=== PATIENT | male | born 1930 | race Caucasian/White ===

== ENCOUNTER 2020-02-19 18:44 | Inpatient (IN) | payer MEDICARE, OTHER ==
[~2020-02-19 18:44] MED LIST: Iopamidol-370 76% 500 ML 1 ML ONE
[2020-02-19] MEDS ORDERED: niCARdipine 20MG In NaCl 0 MG/0 ML BAG ONE (18:52)
[2020-02-19] MEDS ORDERED: niCARdipine 20MG In NaCl 20 MG/200 ML BAG ONE ×2 (19:10→21:01)
[2020-02-19 19:15] LABS: #Basophils 0.1 thou/uL (0.0-0.2); #Eosinphils 0.2 thou/uL (0.0-0.7); #Lymphocytes 2.2 thou/uL (1.20-3.40); #Monocytes 0.6 thou/uL (0.11-0.59); #Neutrophils 2.5 thou/uL (1.40-6.50); %Basophils 0.9 % (0.0-1.0); %Eosinophils 3.4 % (0.0-10.0); %Lymphocytes 40.2 % (21.0-51.0); %Monocytes 10.4 % (0.0-10.0); %Neutrophils 45.2 % (42.0-75.0); Hemoglobin 11.8 g/dL (14.0-18.0); Mean Corpuscular HGB CONC 32.1 g/dL (32.0-36.0); Mean Corpuscular Hemoglobin 30.5 pg (27.0-31.0); Mean Corpuscular Volume 94.9 fL (78.0-98.0); Mean Platelet Volume 9.4 fL (7.4-10.4); Platelet Count 166 thou/uL (130-400); RBC Distribution Width 14.1 % (11.5-14.5); Red Blood Cell (RBC) Count 3.87 mill/uL (4.70-6.10); White Blood Cell (WBC) Count 5.6 thou/uL (4.8-10.8)
--- NOTE | 2020-02-19 19:20 | CT ---
CT HEAD WITHOUT CONTRAST: 02/19/20 INDICATIONS: Stroke protocol. Aphasia. No comparison. FINDINGS: There is mild cortical atrophy. Ventricles have normal size and position. There is no evidence of int racranial mass or hemorrhage. There is no evidence of acute cortical infarct. Paranasal sinuses and m astoids are clear. IMPRESSION: No evidence of acute infarct. Findings relayed to Dr. Garcia at 6:57 p.m. POS: RUPAL
[2020-02-19 19:22] LABS: Prothrombin Time 13.9 sec (12.0-14.7)
[2020-02-19] MEDS ORDERED: Lorazepam 2 MG/ML VIAL ONE (19:33)
[2020-02-19 19:36] LABS: ALT (SGPT) 23 U/L (8-55); AST (SGOT) 25 U/L (5-34); Alkaline Phosphatase 140 U/L (40-110); Anion Gap 15 mmol/L (10-20); BUN (Urea Nitrogen) 16 mg/dL (8.4-25.7); Bilirubin, Total 0.7 mg/dL (0.2-1.2); CK (CPK) 89 U/L (30-200); Calc. Creatinine Clearance 0 mL/min (70-130); Calcium 9.3 mg/dL (7.8-10.44); Carbon Dioxide 21 mmol/L (23-31); Chloride 106 mmol/L (98-107); Estimated GFR-MDRD 64; Globulin 2.9 g/dL (2.4-3.5); Glucose 147 mg/dL (83-110); Potassium 4.9 mmol/L (3.5-5.1); Protein, Total 6.9 g/dL (5.8-8.1); Sodium 137 mmol/L (136-145)
--- NOTE | 2020-02-19 20:10 | CT ---
CTA HEAD WITH CONTRAST CTA NECK WITH CONTRAST: 02/19/20 TECHNIQUE: Axial tomograms obtained through head and neck following angio protocol with multiplanar reconstructi on and 3D postprocessing. CTA HEAD: The intracranial internal carotid arteries are patent. Mild atherosclerotic change seen in the cavern ous ICAs; however, no significant stenosis. Both anterior cerebral arteries are patent and symmetric. Both middle cerebral arteries are patent and symmetric. There is an saccular aneurysm in the distal right M1 segment of the middle cerebral artery at its gen u which measures 5 to 6 mm. This would correspond to the patient's history given by family of a cereb ral aneurysm. There is no evidence of rupture or hemorrhage. The M2 and M3 branches appear symmetric. There is no evidence of M1 stenosis or occlusion. The basilar artery is patent. The posterior cerebral arteries appear patent and symmetric. IMPRESSION: 1. 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 2. No evidence of proximal stenosis or occlusion. Findings relayed to Dr. Garcia. CTA NECK: No evidence of stenosis at the origin of the arch vessels. The common carotid arteries are patent and symmetric. Atherosclerotic calcification and plaque seen in both bulbs and proximal ICAs. No stenosis in either proximal ICA. There is focal stenosis in the distal right internal carotid artery. The degree of stenosis by NASCET criteria is estimated in the 60 to 70% range. No stenosis in the distal left ICA. Vertebral arteries are patent and symmetric. No soft tissue abnormality. 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 Findings relayed to Dr. Garcia. Code CR POS: RUPAL
[2020-02-19 20:18] LABS: Bacteria/HPF None Seen HPF (None Seen); Bilirubin Negative (Negative); Blood, Urine Trace (Negative); Clarity Clear (Clear); Glucose, Urine (Dipstick) 200 mg/dL (Negative); Ketone, Urine Negative (Negative); Leukocyte Negative Leu/uL (Negative); Nitrite Negative (Negative); Protein, Urine (Dipstick) Negative (Neg-Trace); Specific Gravity, Urine 1.021 (1.002-1.036); Squamous Epithelial None Seen HPF (0-3); Urobilinogen Normal mg/dL (Less than 2); WBC/HPF 0-3 HPF (0-3); pH, Urine 6.5 (5.0-9.0)
[2020-02-19 20:26] LABS: Amphetamine Not Detected (NotDetected); Barbiturates Screen Not Detected (NotDetected); Benzodiazepine Screen Detected (NotDetected); Cocaine Metabolite Screen Not Detected (NotDetected); Medtox Control Line Valid? VALID (VALID); Medtox Reader # READER 1; Methadone Not Detected (NotDetected); Methamphetamine Not Detected (NotDetected); Opiate Screen Not Detected (NotDetected); Oxycodone Screen Not Detected (NotDetected); Phencyclidine (PCP) Not Detected (NotDetected); THC/Cannabinoid Screen Not Detected (NotDetected); Tricyclic Screen Not Detected (NotDetected)
--- NOTE | 2020-02-19 20:43 | RAD ---
PORTABLE CHEST: 02/19/20 HISTORY: Mental status change. No comparison. Mild cardiomegaly. No evidence of vascular congestion. There is some stranding in both lungs which ap pears chronic. Interstitial haziness in the lung bases could represent mild ground glass infiltrate o r chronic change. No significant effusion. No consolidation. IMPRESSION: No focal infiltrate or consolidation. Chronic appearing parenchymal changes. POS: AGW
[2020-02-19] MEDS ORDERED: Acetaminophen 650 MG Suppository ONE (21:45)
[2020-02-19] MEDS ORDERED: Insulin Regular 300 UNITS/3 ML VIAL SC PRN (22:10)
--- NOTE | 2020-02-19 22:36 | PDOC.HHP ---
Hospitalist HPI - History of Present Illness Altered mental status History of Present Illness: 89-year-old gentleman with a history of brain aneurysm, history of TIA in the past developed an episode of confusion and agitation of sudden onset. According to the family patient was in his right state of mind and his only complaint was easy fatigability prior to the onset of the event. EMS was called, patient was found to be severely hypertensive with systolic blood pressure at 250. Patient was severely agitated and combative. He was given Ativan and fentanyl IV and then brought to the emergency department. Patient was somnolent on arrival. Stroke alert was called, CT head done showed no acute stroke. CTA head done showed saccular aneurysm near distal branch of the middle cerebral artery. No evidence of rupture or hemorrhage. No evidence of stenosis. Patient was started on nicardipine drip. His systolic blood pressure is currently in the 170s to 180s. He was still somnolent when I saw him in the ED. Case discussed with Dr. Haynes. Patient will be admitted for aggressive control of his blood pressure and also to rule out acute CVA. Noted patient was also febrile with a temperature up to him 100.8. He has no leukocytosis. Blood cultures have been obtained. Hospitalist ROS - Review of Systems ROS unobtainable: due to mental status Hospitalist History - Past Medical History Cardiac: reports: HTN Other Medical History: TIA, coronary artery disease status post stent, glaucoma, skin cancer, cerebral aneurysm. - Past Surgical History Past Surgical History: reports: Appendectomy, Cholecystectomy - Family History Other Family History: Reviewed and noncontributory. - Social History Smoking Status: Former smoker Alcohol: reports: None Drugs: reports: none Living Situation: With Family - Exam General - other findings: Somnolent, obese. Eye: PERRL, anicteric sclera ENT: normocephalic atraumatic, no oropharyngeal lesions, moist mucosa Neck: supple, symmetric, no JVD, no thyromegaly Heart: RRR, no murmur, no gallops, no rubs Respiratory: CTAB, no wheezes, no rales, no ronchi Gastrointestinal: soft, non-tender, non-distended, normal bowel sounds Extremities: no cyanosis, no clubbing, no edema Skin: normal turgor Neurological: cranial nerve grossly intact, no weakness, no focal deficits Musculoskeletal: normal tone, normal strength Psychiatric: somnolent Hospitalist Results - Labs Result Diagrams: 02/19/20 18:54 02/19/20 18:54 Lab results: WBC 5.6 thou/uL (4.8-10.8) 02/19/20 18:54 Hgb 11.8 g/dL (14.0-18.0) L 02/19/20 18:54 Hct 36.7 % (42.0-52.0) L 02/19/20 18:54 MCV 94.9 fL (78.0-98.0) 02/19/20 18:54 Plt Count 166 thou/uL (130-400) 02/19/20 18:54 Neutrophils % 45.2 % (42.0-75.0) 02/19/20 18:54 Sodium 137 mmol/L (136-145) 02/19/20 18:54 Potassium 4.9 mmol/L (3.5-5.1) 02/19/20 18:54 Chloride 106 mmol/L (98-107) 02/19/20 18:54 Carbon Dioxide 21 mmol/L (23-31) L 02/19/20 18:54 BUN 16 mg/dL (8.4-25.7) 02/19/20 18:54 Creatinine 1.09 mg/dL (0.7-1.3) 02/19/20 18:54 Glucose 147 mg/dL (83-110) H 02/19/20 18:54 Lactic Acid 2.1 mmol/L (0.5-2.2) 02/19/20 21:15 Calcium 9.3 mg/dL (7.8-10.44) 02/19/20 18:54 Total Bilirubin 0.7 mg/dL (0.2-1.2) 02/19/20 18:54 AST 25 U/L (5-34) 02/19/20 18:54 ALT 23 U/L (8-55) 02/19/20 18:54 Alkaline Phosphatase 140 U/L (40-110) H 02/19/20 18:54 Creatine Kinase 89 U/L (30-200) 02/19/20 18:54 Troponin I 0.015 ng/mL (< 0.028) 02/19/20 18:54 Serum Total Protein 6.9 g/dL (5.8-8.1) 02/19/20 18:54 Albumin 4.0 g/dL (3.4-4.8) 02/19/20 18:54 Urine Ketones Negative mg/dL (Negative) 02/19/20 20:03 Urine Blood Trace (Negative) A 02/19/20 20:03 Urine Nitrite Negative (Negative) 02/19/20 20:03 Ur Leukocyte Esterase Negative Martha/uL (Negative) 02/19/20 20:03 Urine RBC 4-6 HPF (0-3) A 02/19/20 20: Urine WBC 0-3 HPF (0-3) 02/19/20 20:03 Ur Squamous Epith Cells None Seen HPF (0-3) 02/19/20 20: Urine Bacteria None Seen HPF (None Seen) 02/19/20 20: - Radiology Interpretation CT scan - head Status: report reviewed by me (No acute intracranial process.) Hospitalist H&P A/P - Problem (1) Altered mental status Code(s): R41.82 - ALTERED MENTAL STATUS, UNSPECIFIED Status: Acute Assessment and Plan: Likely secondary to malignant hypertension. No intracerebral bleed. Neurochecks (2) Hypertensive encephalopathy Code(s): I67.4 - HYPERTENSIVE ENCEPHALOPATHY Status: Acute (3) Malignant hypertension Code(s): I10 - ESSENTIAL (PRIMARY) HYPERTENSION Status: Acute (4) Cerebral aneurysm Status: Acute (5) History of TIA (transient ischemic attack) Code(s): Z86.73 - PRSNL HX OF TIA (TIA), AND CEREB INFRC W/O RESID DEFICITS Status: Acute (6) Coronary artery disease Code(s): I25.10 - ATHSCL HEART DISEASE OF [place] CORONARY ARTERY W/O ANG PCTRS Status: Acute (7) Diabetes mellitus type 2 in obese Code(s): E11.69 - TYPE 2 DIABETES MELLITUS WITH OTHER SPECIFIED COMPLICATION; E66.9 - OBESITY, UNSPECIFIED Status: Acute - Plan Plan: Admit to ICU. Aggressive blood pressure control with nicardipine drip. Target SBP of 140-160 tonight. And then 120 if MRI of the brain is negative for acute CVA Case discussed with neurology-Dr. Haynes. Obtain MRI of the brain tonight. No anticoagulation, no antiplatelet until MRI of the brain results. Given the patient has a fever, UA has been ordered, and blood cultures obtained. Will empirically treat with IV Rocephin and IV vancomycin. Will use insulin sliding scale for glucose control. Neurology consulted Neurosurgery consulted. Critical care time spent managing as above 35 minutes.
[2020-02-19 23:27] LABS: Prothrombin Time 13.6 sec (12.0-14.7)
[2020-02-19] MEDS: Sodium Chloride 0.9% 1,000 ML IV SCH (23:55)
[2020-02-20 00:27] LABS: Lactic Acid 2.5 mmol/L (0.5-2.2)
[2020-02-20] MEDS ORDERED: Lorazepam 2 MG/ML VIAL SLOW IVP SCH (00:45)
[2020-02-20] MEDS: niCARdipine 25 MG in Sodium Chloride 0.9% 250 ML 240 ML IVPB SCH ×3 (01:04→05:57)
[2020-02-20 03:33] LABS: Cardiac Risk 3.2 (Less than 4.5)
[2020-02-20] MEDS ORDERED: Lorazepam 2 MG/ML VIAL ONE (04:53)
[2020-02-20] MEDS: cefTRIAXone\\ROCEPHIN 1 GM in Sodium Chloride 0.9% 100 ML IVPB SCH ×2 (07:20→21:07)
[2020-02-20] MEDS: Vancomycin 1 GM in Premix Bag 1 BAG IVPB SCH ×2 (07:28→19:43)
--- NOTE | 2020-02-20 07:59 | PRG ---
DATE OF SERVICE: 02/20/2020 I personally interviewed and examined the patient, agreed with documentation of Fuad Odonnell PA-C, dated 02/20/2020. Briefly, Duy Curtis is an 89-year-old gentleman who was with his family yesterday when he began having some dysphasia around 5:30 in the evening. He eventually was admitted to our emergency department, where a CT examination of brain did not reveal any concluded infarct. A CT angiogram showed a distal ICA stenosis just below the skull, in the neck as well as a right MCA aneurysm. It is unruptured and measures about 5 mm. There is no obvious intravascular abnormality on the left (dominant) hemisphere. There is a tiny filling defect in the middle of the superior sagittal sinus, which could be an arachnoid granulation. There is no intracranial hemorrhage and the rest of the scans are unremarkable. An MRI scan is scheduled for today. Neurosurgery was consulted for the incidental right MCA aneurysm. Mr. Curtis cannot participate in his examination this morning, says a few words and asks me to release his arms. He is moving both sides of his body well, but he is disoriented and it is difficult for him to communicate with a coherent thought. Occasionally, I will get him to follow commands. With regard to the right MCA aneurysm, the risk of rupture is quite low. His age of 89 years makes me want to lean onto the side of not treating this aneurysm. Followup images can be obtained over time to see if it enlarges. Thus ischemic stroke workup should continue and perhaps a neurology consultation may be helpful in further elucidating the etiology of this acute dysesthesia/cognitive disturbance. Mr. Curtis is also an 89-year-old gentleman who came in with a fever during the time of COVID. I do not see any testing for that virus currently and that might be considered. We will arrange followup in our clinic. (15 min) Job ID: [id number] MTDD
[2020-02-20] MEDS ORDERED: Sodium Chloride 0.9% (PF) 10 ML VIAL FS PRN (08:45)
[2020-02-20] MEDS ORDERED: FLU VACC QS2020-21(65YR UP)/PF 240 MCG/0.7 ML SYRINGE IM ONE (09:00)
[2020-02-20] MEDS ORDERED: Vancomycin HCl 1 GM in Premix Bag 1 BAG IVPB SCH (09:00)
--- NOTE | 2020-02-20 09:15 | CON ---
DATE OF CONSULTATION: 02/20/2020 CONSULTING PHYSICIAN: Deeist . REASON FOR CONSULTATION: The patient is in the intensive care. HISTORY OF PRESENT ILLNESS: The patient is unable to give history; therefore, what I have obtained for reading the records in the chart, he is an 89-year-old who lives in a senior living. He was brought in last night, severely agitated. He was found to have a profoundly elevated systolic blood pressure. He was placed on nicardipine. He had a CT of the head, which showed an unrelated saccular aneurysm near the distal branch of the middle cerebral artery. Neurosurgery has been consulted and does not think that is causing any issues here. He was placed on nicardipine drip to bring his blood pressure down, despite that he has been combative. He has also been febrile with a temperature up to 100.8. COVID test has been ordered, but has not resulted. PAST MEDICAL HISTORY: 1. Advanced age. 2. Hypertension. 3. Transient ischemic attack. 4. Glaucoma. 5. Skin cancer. PAST SURGICAL HISTORY: Appendectomy and cholecystectomy. FAMILY MEDICAL HISTORY: Unremarkable. SOCIAL HISTORY: Former smoker. Does not consume alcohol. MEDICATIONS: Prior to admission: 1. Timolol eye drops. 2. Aspirin 81 mg daily. 3. Cymbalta 60 mg daily. 4. Plavix 75 mg daily. 5. Atorvastatin 40 mg daily. 6. Meclizine 25 mg as needed. 7. Leflunomide 20 mg daily. 8. Metformin 1000 mg b.i.d. 9. Saw palmetto 500 mg daily. 10. Chlorpheniramine 4 mg daily. 11. Telmisartan 40 mg daily. 12. Metoprolol 25 mg daily. ALLERGIES: AMOXICILLIN AND CLAVULANIC ACID. REVIEW OF SYSTEMS: Cannot be obtained because the patient is agitated. PHYSICAL EXAMINATION: VITAL SIGNS: Temperature 100.4, pulse 74, blood pressure 151/64, and sat 99%. GENERAL: He is awake, does not follow any commands specifically. HEENT: He has horizontal nystagmus. NECK: No adenopathy or JVD. LUNGS: Clear to auscultation. CARDIAC: S1 and S2, regular. ABDOMEN: Soft and nontender. EXTREMITIES: No clubbing, cyanosis, or edema. LABORATORY DATA: White blood cell count 5.6, hematocrit 36.7, and platelet count 166. No bandemia. INR 1.0. Sodium 137, potassium 4.9, chloride 106, CO2 of 21, BUN 16, creatinine 1.0, and glucose 147. Urinalysis shows no significant white blood cells, but he has glucosuria. Tox screen positive for benzodiazepines. Chest x-ray demonstrates no mass, effusion, or infiltrate. ASSESSMENT: 1. Hypertensive encephalopathy. 2. Rule out sepsis. 3. Cerebral aneurysm. 4. Advanced age. 5. Diabetes mellitus. PLAN: 1. Given that he is febrile, I would definitely rule out COVID in this patient. 2. Treat hypertension with nicardipine. Convert to oral medications if his mental status improves. 3. Further care per hospitalist group. Job ID: [id number]
--- NOTE | 2020-02-20 09:25 | CON ---
DATE OF CONSULTATION: 02/20/2020 CHIEF COMPLAINT: Stroke-like symptoms. HISTORY OF PRESENT ILLNESS: Mr. Curtis is an 89-year-old gentleman with history of vascular disease, brain aneurysm, who developed some confusion and combative around his family. On arrival, he had some right-sided weakness and malignant hypertension. Prior to admission to the ED, he was given Ativan and fentanyl on his route to the emergency department. CT of the head was done showing no acute hemorrhages. CTA of the head was performed and showed a saccular aneurysm near the distal branch of the middle cerebral artery. There was no rupture or hemorrhage. No evidence of stenosis. The patient was admitted due to a temperature of 100.8 and prior systolic blood pressure of 250. REVIEW OF SYSTEMS: Unobtainable due to mental status. PAST MEDICAL HISTORY: TIA, cardiac stents x2, hypertension, glaucoma, and skin cancer. PAST SURGICAL HISTORY: Appendectomy, cholecystectomy. SOCIAL HISTORY: Former smoker. No history of alcohol or illicit drugs. MEDICATIONS: 1. Metoprolol 25 mg. 2. Telmisartan 40 mg. 3. Chlorpheniramine 4 mg. 4. Saw palmetto 500 mg. 5. Metformin 1000 mg. 6. Meclizine 25 mg. 7. Leflunomide 20 mg. 8. Clopidogrel 75 mg. 9. Atorvastatin 40 mg. 10. Duloxetine 60 mg. 11. Baby aspirin. 12. Timolol 0.5% ophthalmic. ALLERGIES: AMOXICILLIN, AUGMENTIN, CLAVULANIC ACID. PHYSICAL EXAMINATION: VITAL SIGNS: Blood pressure 228/112, pulse 60, and temperature 100.2. CONSTITUTIONAL: Obese, confused. HEENT: Head; atraumatic, normocephalic. Eyes; PERRL. Extraocular muscles are intact. ENT; ear exam is normal and nose exam is normal. NECK: Soft, supple. No masses are noted. Range of motion is intact. NEUROLOGICAL: Cranial nerves grossly intact. No weakness. No focal deficits. Normal tone and normal strength in all extremities. Eye opening to voice. Verbal response, confused. Motor response, localizes to pain. LABORATORY DATA: WBC 5.6, platelets 166. Sodium 137. PT 13.9, INR 1.0, and PTT 33. IMAGING: CT of the head, no acute hemorrhages. CT of the head, saccular aneurysm near the distal branch of the middle cerebral artery with no evidence of rupture, hemorrhage, or stenosis. ASSESSMENT: 1. Cerebral aneurysm. 2. Malignant hypertension. 3. Altered mental status. PLAN: Supportive care. No intracranial surgery at this time. Job ID: [id number] MTDD
[2020-02-20] MEDS: Pantoprazole 40 MG VIAL IVP SCH (09:39)
[2020-02-20 12:10] LABS: SARS-CoV-2 MS2 Positive; SARS-CoV-2 N Gene Negative; SARS-CoV-2 S Gene Negative; SARS-CoV-2 by NAA Not Detected (NotDetected); SARS-CoV-2 orf1ab Negative
--- NOTE | 2020-02-20 12:18 | EEG ---
DATE OF SERVICE: 02/20/2020 ATTENDING: Chantelle Haynes MD This EEG was performed using 24-channel [employer]ktek video digital EEG machine with 24-disk electrodes. This was an extended 2 hours 4 minutes of inpatient video EEG recording. Digital analysis of the EEG was done for spike and seizure detection, which revealed no abnormalities. BACKGROUND: The posterior background rhythm was not observed. HYPERVENTILATION: Not performed. PHOTIC STIMULATION: No significant response seen with photic stimulation. SLEEP: Drowsiness and sleep are observed. EEG DIAGNOSES: 1. Intermittent irregular theta activity seen throughout the recording. 2. Absence of posterior background rhythm. CLINICAL INTERPRETATION: This EEG is consistent with [id number] generalized nonspecific cerebral dysfunction. Job ID: [id number]
--- NOTE | 2020-02-20 13:01 | CON ---
NEUROLOGY CONSULTATION DATE OF CONSULTATION: 02/20/2020 REASON FOR CONSULTATION: Altered mental status/hypertensive emergency. HISTORY OF PRESENT ILLNESS: Mr. Curtis is an 89-year-old male with history significant for cerebral aneurysm, history of TIA in the past, presented with altered mental status. EMS was called and he was found to be altered, combative, agitated, and hypertensive with systolic blood pressure 250. He was given Ativan and fentanyl and brought to the emergency department for further evaluation. He was somnolent on arrival. Head CT was done, which did not reveal any acute intracranial pathology. CTA was done, which showed saccular aneurysm near distal branch of the middle cerebral artery with no evidence of rupture or hemorrhage. There is no evidence of stenosis. He was started on nicardipine drip and Neurology was called to evaluate for altered mental status. He was also found to be febrile with temperature 100.8. REVIEW OF SYSTEMS: Unobtainable due to the patient's mental status. History is obtained from review of the medical records since the patient is unable to provide the history and also obtained from the daughter at bedside. PAST MEDICAL HISTORY: Hypertension, TIA, coronary artery disease, glaucoma, cerebral aneurysm, skin cancer. PAST SURGICAL HISTORY: Status post cardiac stenting, appendectomy, cholecystectomy. FAMILY HISTORY: No family history of stroke. SOCIAL HISTORY: The patient lives with family. There is no history of alcohol, illegal drug abuse, or tobacco per daughter. ALLERGIES: Amoxacillin, clauvanic acid PHYSICAL EXAMINATION: 127/75 79 20 General - other findings: Somnolent, obese. Eye: PERRL, anicteric sclera ENT: normocephalic atraumatic, no oropharyngeal lesions, moist mucosa Neck: supple, symmetric, no JVD, no thyromegaly Heart: RRR, no murmur, no gallops, no rubs Respiratory: CTAB, no wheezes, no rales, no ronchi Gastrointestinal: soft, non-tender, non-distended, normal bowel sounds Extremities: no cyanosis, no clubbing, no edema Skin: normal turgor Neurological: Mental status, the patient is alert and oriented to person only, gets agitated. Speech is clear. He does not follow commands. Cranial nerves 2 through 12 intact. Motor, muscle tone and bulk are normal. Moving all 4 extremities equally and symmetrically. Sensory, withdraws to nailbed pressure bilaterally. Cerebellar, unable to perform secondary to four-point restraints and the patient's mental status. Gait deferred due to the patient's safety reason. DATA REVIEWED: I reviewed the labs, which were significant for anemia. Hemoglobin of 11.8, hematocrit is 36.7. Hyperglycemia. Blood glucose 147. Head CT was reviewed, which was negative for acute intracranial process. Lab results: WBC 5.6 thou/uL (4.8-10.8) 02/19/20 18:54 Hgb 11.8 g/dL (14.0-18.0) L 02/19/20 18:54 Hct 36.7 % (42.0-52.0) L 02/19/20 18:54 MCV 94.9 fL (78.0-98.0) 02/19/20 18:54 Plt Count 166 thou/uL (130-400) 02/19/20 18:54 Neutrophils % 45.2 % (42.0-75.0) 02/19/20 18:54 Sodium 137 mmol/L (136-145) 02/19/20 18:54 Potassium 4.9 mmol/L (3.5-5.1) 02/19/20 18:54 Chloride 106 mmol/L (98-107) 02/19/20 18:54 Carbon Dioxide 21 mmol/L (23-31) L 02/19/20 18:54 BUN 16 mg/dL (8.4-25.7) 02/19/20 18:54 Creatinine 1.09 mg/dL (0.7-1.3) 02/19/20 18:54 Glucose 147 mg/dL (83-110) H 02/19/20 18:54 Lactic Acid 2.1 mmol/L (0.5-2.2) 02/19/20 21:15 Calcium 9.3 mg/dL (7.8-10.44) 02/19/20 18:54 Total Bilirubin 0.7 mg/dL (0.2-1.2) 02/19/20 18:54 AST 25 U/L (5-34) 02/19/20 18:54 ALT 23 U/L (8-55) 02/19/20 18:54 Alkaline Phosphatase 140 U/L (40-110) H 02/19/20 18:54 Creatine Kinase 89 U/L (30-200) 02/19/20 18:54 Troponin I 0.015 ng/mL (< 0.028) 02/19/20 18:54 Serum Total Protein 6.9 g/dL (5.8-8.1) 02/19/20 18:54 Albumin 4.0 g/dL (3.4-4.8) 02/19/20 18:54 Urine Ketones Negative mg/dL (Negative) 02/19/20 20:03 Urine Blood Trace (Negative) A 02/19/20 20: Urine Nitrite Negative (Negative) 02/19/20 20:03 Ur Leukocyte Esterase Negative Martha/uL (Negative) 02/19/20 20:03 Urine RBC 4-6 HPF (0-3) A 02/19/20 20: Urine WBC 0-3 HPF (0-3) 02/19/20 20:03 Ur Squamous Epith Cells None Seen HPF (0-3) 02/19/20 20: Urine Bacteria None Seen HPF (None Seen) 02/19/20 20: - Radiology Interpretation CT scan - head Status: report reviewed by me (No acute intracranial process.) ASSESSMENT AND PLAN: (1) Altered mental status Code(s): R41.82 - ALTERED MENTAL STATUS, UNSPECIFIED Status: Acute (2) Hypertensive encephalopathy Code(s): I67.4 - HYPERTENSIVE ENCEPHALOPATHY Status: Acute (3) Malignant hypertension Code(s): I10 - ESSENTIAL (PRIMARY) HYPERTENSION Status: Acute (4) Cerebral aneurysm Status: Acute (5) History of TIA (transient ischemic attack) Code(s): Z86.73 - PRSNL HX OF TIA (TIA), AND CEREB INFRC W/O RESID DEFICITS Status: Acute (6) Coronary artery disease Code(s): I25.10 - ATHSCL HEART DISEASE OF [place] CORONARY ARTERY W/O ANG PCTRS Status: Acute (7) Diabetes mellitus type 2 in obese Code(s): E11.69 - TYPE 2 DIABETES MELLITUS WITH OTHER SPECIFIED COMPLICATION; E66.9 - OBESITY, UNSPECIFIED Status: Acute Mr. Duy Curtis was consulted for altered mental status seems to be multifactorial secondary to hypertensive emergency versus infectious etiology since the patient presented with fever; however, acute intracranial process could not be completely ruled out. Consider MRI of the brain to rule out acute intracranial process. EEG to rule out underlying cortical irritability and is negative for seizure activity. Neuro checks every 4 hours. Continue home medications. Telemetry. Continue medical management per strict control of blood pressure and blood glucose. Continue aspirin and statin for secondary stroke prevention. Continue medical management per primary team, PT/OT plus Speech when stable. We will continue to follow. Thank you for the consult. Plan discussed with the patient's daughter at bedside and also with the nursing staff. Job ID: [id number] FLEX
--- NOTE | 2020-02-20 16:39 | PDOC.HOSPP ---
- Subjective Encounter Date: 02/20/20 Encounter Time: 16:40 Subjective: f/u for HTN encephalopathy with saccular aneurysm noted on CTA without rupture or hemorrhage. Cardene gtt initiated - Objective Vital Signs & Weight: Vital Signs (12 hours) Temp Pulse Ox 02/20/20 12:00 97.7 F 02/20/20 07:09 97 02/20/20 07:00 100.4 F H Weight Admit Weight 195 lb 15.855 oz Weight 195 lb 15.855 oz Most Recent Monitor Data Heart Rate from ECG 56 NIBP 149/67 NIBP BP-Mean 94 Respiration from ECG 24 SpO2 97 I&O: 02/19/20 02/20/20 02/21/20 06:59 06:59 06:59 Intake Total 389 0 Output Total 810 710 Balance -421 -710 Result Diagrams: 02/19/20 18:54 02/19/20 18:54 Additional Labs: Microbiology 02/19/20 21:15 Venous blood - Right Hand Blood Culture - Preliminary Specimen has been received and culture in progress . No Growth to date. 02/19/20 21:15 Venous blood - Left Hand Blood Culture - Preliminary Specimen has been received and culture in progr ess. No Growth to date. Laboratory Tests 02/19/20 02/19/20 02/19/20 20:03 21:15 22:50 Lactic Acid 2.1 U Benzodiazepines Scrn Detected H SARS-CoV-2 (PCR) Not Detected 02/19/20 23:52 Lactic Acid 2.5 H U Benzodiazepines Scrn SARS-CoV-2 (PCR) Radiology Reviewed by me: Yes (Echo - EF 55-60%, diast dysfxn) EKG Reviewed by me: Yes (Tele - SR) Hospitalist ROS - Medication Medications: Active Medications Generic Name Dose Route Start Last Admin Trade Name Freq PRN Reason Stop Dose Admin Sodium Chloride 1,000 mls @ 50 mls/hr 02/19/20 22:15 02/19/20 23:55 Normal Saline 0.9% IV 1,000 mls .Q20H WILMA Administration Ceftriaxone Sodium 1 gm/ 100 mls @ 200 mls/hr 02/20/20 09:00 02/20/20 07:20 Sodium Chloride IVPB 100 mls Q12HR WILMA Administration Nicardipine HCl 25 mg/ Sodium 250 mls @ 0 mls/hr 02/19/20 22:30 02/20/20 05:57 Chloride IVPB 250 mls INF WILMA Administration Protocol Titrate Vancomycin HCl 1 gm/ Device 200 mls @ 200 mls/hr 02/20/20 09:00 02/20/20 07:28 IVPB 200 mls Q12HR WILMA Administration Dexmedetomidine HCl 400 mcg/ 100 mls @ 0 mls/hr 02/20/20 09:45 02/20/20 09:55 Sodium Chloride IVPB 100 mls INF WILMA Administration Per Protocol Pantoprazole Sodium 40 mg 02/20/20 09:00 02/20/20 09:39 Pantoprazole 40 Mg Vial IVP 40 mg DAILY WILMA Administration - Exam General - other findings: opens eyes to name, responds to questions slowly Eye: PERRL, anicteric sclera ENT: normocephalic atraumatic, no oropharyngeal lesions Neck: supple, symmetric, no JVD, no thyromegaly Heart: RRR, no gallops, no rubs, normal peripheral pulses Heart - other findings: S1, S2 Respiratory: CTAB, no wheezes, no rales, no ronchi, normal chest expansion Gastrointestinal: soft, non-tender, non-distended, normal bowel sounds, no palpable masses Extremities: no cyanosis, no clubbing, no edema Skin: normal turgor, no lesions Neurological: cranial nerve grossly intact Neurological - other findings: hearing loss(chronic), responsive to questions, moves all limbs Musculoskeletal: normal tone, generalized weakness Psychiatric: oriented to person, oriented to place, somnolent Hosp A/P (1) Hypertensive encephalopathy Code(s): I67.4 - HYPERTENSIVE ENCEPHALOPATHY Status: Acute Plan: Improving, continue BP mgmt and supportive care, serial neuro exams, MRI brain in am (2) Hypertensive urgency Code(s): I16.0 - HYPERTENSIVE URGENCY Status: Acute Plan: Resolving, off Cardene gtt currently, resume home BP regimen (3) Cerebral aneurysm Status: Acute Plan: No surgical intervention recommended (4) Diabetes mellitus type 2 in obese Code(s): E11.69 - TYPE 2 DIABETES MELLITUS WITH OTHER SPECIFIED COMPLICATION; E66.9 - OBESITY, UNSPECIFIED Status: Chronic Plan: Continue ISS, hold Metformin another 24h - Plan PT/OT, social services director, DVT proph w/SCDs Continue supportive mgmt Cardene gtt d/c'd Resume home BP regimen Wean off Precedex MRI brain in am PT for mobilization in 24h
[2020-02-20] MEDS: Sodium Chloride 0.9% 1,000 ML IV SCH (19:18)
[2020-02-20] MEDS: Timolol 0.5% Ophth Soln 5 ml Bottle EA EYE SCH (21:07)
[2020-02-21 04:06] LABS: #Eosinphils 0.1 thou/uL (0.0-0.7); #Lymphocytes 1.7 thou/uL (1.20-3.40); #Monocytes 0.5 thou/uL (0.11-0.59); #Neutrophils 4.1 thou/uL (1.40-6.50); %Basophils 0.1 % (0.0-1.0); %Eosinophils 2.1 % (0.0-10.0); %Lymphocytes 26.3 % (21.0-51.0); %Neutrophils 63.5 % (42.0-75.0); Hemoglobin 11.1 g/dL (14.0-18.0); Mean Corpuscular HGB CONC 33.4 g/dL (32.0-36.0); Mean Corpuscular Hemoglobin 31.4 pg (27.0-31.0); Mean Corpuscular Volume 93.9 fL (78.0-98.0); Mean Platelet Volume 9.8 fL (7.4-10.4); Platelet Count 139 thou/uL (130-400); RBC Distribution Width 13.7 % (11.5-14.5); Red Blood Cell (RBC) Count 3.54 mill/uL (4.70-6.10); White Blood Cell (WBC) Count 6.5 thou/uL (4.8-10.8)
[2020-02-21 04:22] LABS: Anion Gap 13 mmol/L (10-20); BUN (Urea Nitrogen) 16 mg/dL (8.4-25.7); Calc. Creatinine Clearance 82 mL/min (70-130); Calcium 8.6 mg/dL (7.8-10.44); Carbon Dioxide 21 mmol/L (23-31); Chloride 106 mmol/L (98-107); Estimated GFR-MDRD Greater than 90; Glucose 132 mg/dL (83-110); Potassium 3.9 mmol/L (3.5-5.1); Sodium 136 mmol/L (136-145)
[2020-02-21] MEDS: Clopidogrel Bisulfate 75 MG TAB PO SCH (08:29)
[2020-02-21] MEDS: Losartan 25 MG TAB PO SCH (08:29)
[2020-02-21] MEDS: Timolol 0.5% Ophth Soln 5 ml Bottle EA EYE SCH ×2 (08:30→20:57)
[2020-02-21] MEDS: cefTRIAXone\\ROCEPHIN 1 GM in Sodium Chloride 0.9% 100 ML IVPB SCH ×2 (08:34→20:58)
[2020-02-21] MEDS: Pantoprazole 40 MG VIAL IVP SCH (08:35)
[2020-02-21] MEDS ORDERED: Atorvastatin Calcium 40 MG TAB PO SCH (09:00)
[2020-02-21] MEDS ORDERED: Aspirin 81 mg Enteric Coated Tablet PO SCH (09:00)
[2020-02-21] MEDS ORDERED: Metoprolol Tartrate 25 MG TAB PO SCH (09:00)
[2020-02-21] MEDS: Vancomycin 1 GM in Premix Bag 1 BAG IVPB SCH ×2 (09:11→21:52)
--- NOTE | 2020-02-21 11:15 | PRG ---
DATE OF SERVICE: 02/21/2020 SUBJECTIVE: The patient's sensorium is much improved today. He is off the Precedex. He is actually fairly alert as long as we speak very loudly to him. OBJECTIVE: VITAL SIGNS: Temperature 98.0, pulse 46, blood pressure 160/66, O2 saturation 98%. HEENT: Unremarkable. NECK: No JVD. CHEST: Clear anteriorly. CARDIAC: S1, S2. Regular. ABDOMEN: Soft. EXTREMITIES: No edema. LABORATORY DATA: Sodium 136, potassium 3.9, chloride 106, CO2 of 21, BUN 16, creatinine 0.7, glucose 132. White blood cell count 6.5, hematocrit 33.2, platelet count 139. His COVID test was negative. The patient is now off the nicardipine drip. ASSESSMENT: 1. Hypertensive encephalopathy-better. 2. Possible sepsis. 3. Cerebral aneurysm. 4. Advanced age. 5. Diabetes mellitus. PLAN: The patient can be transferred to [facility] [place]. I have stop the Precedex drip. I would continue the empiric antibiotics. Job ID: [id number]
[2020-02-21] MEDS: Sodium Chloride 0.9% 1,000 ML IV SCH (13:57)
--- NOTE | 2020-02-21 15:54 | PDOC.NEUPN ---
- Subjective Encounter Date: 02/21/20 Subjective: Patient much improved today and is calm and cooperative. - Objective Vital Signs & Weight: Vital Signs (12 hours) Temp Pulse BP Pulse Ox 02/21/20 15:31 98.6 F 02/21/20 11:00 98 02/21/20 08:30 65 169/69 H 02/21/20 07:21 98 02/21/20 07:00 98.0 F Weight Admit Weight 195 lb 15.855 oz Weight 195 lb 15.855 oz Most Recent Monitor Data Heart Rate from ECG 53 NIBP 177/71 NIBP BP-Mean 106 Respiration from ECG 22 SpO2 100 I&O: 02/20/20 02/21/20 02/22/20 06:59 06:59 06:59 Intake Total 389 1720.6 677 Output Total 810 1525 905 Balance -421 195.6 -228 Result Diagrams: 02/21/20 03:16 02/21/20 03:16 Radiology Reviewed by me: Yes EKG Reviewed by me: Yes ROS - Review of Systems ROS unobtainable: due to mental status - Medication Medications: Active Medications Generic Name Dose Route Start Last Admin Trade Name Freq PRN Reason Stop Dose Admin Clopidogrel Bisulfate 75 mg 02/21/20 09:00 02/21/20 08:29 Clopidogrel Bisulfate 75 Mg Tab PO 75 mg DAILY WILMA Administration Sodium Chloride 1,000 mls @ 50 mls/hr 02/19/20 22:15 02/21/20 13:57 Normal Saline 0.9% IV 1,000 mls .Q20H WILMA Administration Ceftriaxone Sodium 1 gm/ 100 mls @ 200 mls/hr 02/20/20 09:00 02/21/20 08:34 Sodium Chloride IVPB 100 mls Q12HR WILMA Administration Nicardipine HCl 25 mg/ Sodium 250 mls @ 0 mls/hr 02/19/20 22:30 02/20/20 05:57 Chloride IVPB 250 mls INF WILMA Administration Protocol Titrate Vancomycin HCl 1 gm/ Device 200 mls @ 200 mls/hr 02/20/20 09:00 02/21/20 09:11 IVPB 200 mls Q12HR WILMA Administration Losartan Potassium 50 mg 02/21/20 09:00 02/21/20 08:29 Losartan 25 Mg Tab PO 50 mg DAILY WILMA Administration Metoprolol Tartrate 25 mg 10/04/20 09:00 02/21/20 08:29 Metoprolol Tartrate 25 Mg Tab PO 25 mg DAILY WILMA Administration Pantoprazole Sodium 40 mg 02/20/20 09:00 02/21/20 08:35 Pantoprazole 40 Mg Vial IVP 40 mg DAILY WILMA Administration Timolol Maleate 1 drop 02/20/20 21:00 02/21/20 08:30 Timolol 0.5% Ophth Soln 5 Ml Bottle EA EYE 1 drp BID WILMA Administration - Exam General Appearance: awake alert Eye: PERRL ENT: normocephalic atraumatic Neck: supple Respiratory: CTAB Cardiovascular: RRR Gastrointestinal: soft Extremities: no cyanosis Skin: normal turgor Neurological: CN's grossly intact, no weakness, no focal deficits, no new deficit Musculoskeletal: normal tone, normal strength, no muscle wasting PSYCH: normal affect, normal behavior, oriented to person Results - Labs Result Diagrams: 02/21/20 03:16 02/21/20 03:16 Lab results: WBC 6.5 thou/uL (4.8-10.8) 02/21/20 03:16 Hgb 11.1 g/dL (14.0-18.0) L 02/21/20 03:16 Hct 33.2 % (42.0-52.0) L 02/21/20 03:16 MCV 93.9 fL (78.0-98.0) 02/21/20 03:16 Plt Count 139 thou/uL (130-400) 02/21/20 03:16 Neutrophils % 63.5 % (42.0-75.0) 02/21/20 03:16 Sodium 136 mmol/L (136-145) 02/21/20 03:16 Potassium 3.9 mmol/L (3.5-5.1) 02/21/20 03:16 Chloride 106 mmol/L (98-107) 02/21/20 03:16 Carbon Dioxide 21 mmol/L (23-31) L 02/21/20 03:16 BUN 16 mg/dL (8.4-25.7) 02/21/20 03:16 Creatinine 0.78 mg/dL (0.7-1.3) 02/21/20 03:16 Glucose 132 mg/dL (83-110) H 02/21/20 03:16 Lactic Acid 2.5 mmol/L (0.5-2.2) H 02/19/20 23:52 Calcium 8.6 mg/dL (7.8-10.44) 02/21/20 03:16 Total Bilirubin 0.7 mg/dL (0.2-1.2) 02/19/20 18:54 AST 25 U/L (5-34) 02/19/20 18:54 ALT 23 U/L (8-55) 02/19/20 18:54 Alkaline Phosphatase 140 U/L (40-110) H 02/19/20 18:54 Creatine Kinase 89 U/L (30-200) 02/19/20 18:54 Troponin I 0.015 ng/mL (< 0.028) 02/19/20 18:54 Serum Total Protein 6.9 g/dL (5.8-8.1) 02/19/20 18:54 Albumin 4.0 g/dL (3.4-4.8) 02/19/20 18:54 Urine Ketones Negative mg/dL (Negative) 02/19/20 20:03 Urine Blood Trace (Negative) A 02/19/20 20:03 Urine Nitrite Negative (Negative) 02/19/20 20:03 Ur Leukocyte Esterase Negative Martha/uL (Negative) 02/19/20 20:03 Urine RBC 4-6 HPF (0-3) A 02/19/20 20:03 Urine WBC 0-3 HPF (0-3) 02/19/20 20:03 Ur Squamous Epith Cells None Seen HPF (0-3) 02/19/20 20:03 Urine Bacteria None Seen HPF (None Seen) 02/19/20 20:03 - Radiology Interpretation CT scan - head Status: report reviewed by me Additional Comment: no acute intracranial process PN A/P (1) Altered mental status Code(s): R41.82 - ALTERED MENTAL STATUS, UNSPECIFIED Status: Acute (2) Cerebral aneurysm Status: Acute (3) Coronary artery disease Code(s): I25.10 - ATHSCL HEART DISEASE OF [place] CORONARY ARTERY W/O ANG PCTRS Status: Acute (4) History of TIA (transient ischemic attack) Code(s): Z86.73 - PRSNL HX OF TIA (TIA), AND CEREB INFRC W/O RESID DEFICITS Status: Acute (5) Hypertensive encephalopathy Code(s): I67.4 - HYPERTENSIVE ENCEPHALOPATHY Status: Acute (6) Hypertensive urgency Code(s): I16.0 - HYPERTENSIVE URGENCY Status: Acute (7) Malignant hypertension Code(s): I10 - ESSENTIAL (PRIMARY) HYPERTENSION Status: Acute (8) Diabetes mellitus type 2 in obese Code(s): E11.69 - TYPE 2 DIABETES MELLITUS WITH OTHER SPECIFIED COMPLICATION; E66.9 - OBESITY, UNSPECIFIED Status: Chronic - Plan Daily Plan: plan discussed w/ family, PT/OT, speech therapy, DVT proph w/SCDs 89 year old with altered mental status in the setting of hypertensive emergency now improving with better control of BP. EEG reviewed and was negative for seizure activity. Mri Brain to rule out acute inracranial process pending. Neurochecks every 4 hours. Telemetry Continue home medications. Strict control of BP. Continue medical management per primary team. PT/OT/Speech Plan discussed with the patient, and the daughter.
--- NOTE | 2020-02-21 16:27 | PDOC.HOSPP ---
- Subjective Encounter Date: 02/21/20 Encounter Time: 16:20 Subjective: f/u for HTN encephalopathy now resolving. Feels better overall. No acute CVA by MRI brain imaging. - Objective Vital Signs & Weight: Vital Signs (12 hours) Temp Pulse BP Pulse Ox 02/21/20 15:31 98.6 F 02/21/20 11:00 98 02/21/20 08:30 65 169/69 H 02/21/20 07:21 98 02/21/20 07:00 98.0 F Weight Admit Weight 195 lb 15.855 oz Weight 195 lb 15.855 oz Most Recent Monitor Data Heart Rate from ECG 53 NIBP 177/71 NIBP BP-Mean 106 Respiration from ECG 22 SpO2 100 I&O: 02/20/20 02/21/20 02/22/20 06:59 06:59 06:59 Intake Total 389 1720.6 677 Output Total 810 1525 905 Balance -421 195.6 -228 Result Diagrams: 02/21/20 03:16 02/21/20 03:16 Additional Labs: Microbiology 02/19/20 21:15 Venous blood - Right Hand Blood Culture - Preliminary Specimen has been received and culture in progress. No Growth to date. 02/19/20 21:15 Venous blood - Right Hand Blood Culture - Preliminary NO GROWTH AT 48 HOURS 02/19/20 21:15 Venous blood - Left Hand Blood Culture - Preliminary Specimen has been received and culture in [facility]. No Growth to date. 02/19/20 21:15 Venous blood - Left Hand Blood Culture - Preliminary NO GROWTH AT 48 HOURS Laboratory Tests 02/19/20 02/19/20 02/19/20 20:03 21:15 22:50 Lactic Acid 2.1 U Benzodiazepines Scrn Detected H SARS-CoV-2 (PCR) Not Detected 02/19/20 23:52 Lactic Acid 2.5 H U Benzodiazepines Scrn SARS-CoV-2 (PCR) Radiology Reviewed by me: Yes (MRI brain - no acute infarct) EKG Reviewed by me: Yes (Tele - sinus vito) Hospitalist ROS - Medication Medications: Active Medications Generic Name Dose Route Start Last Admin Trade Name Freq PRN Reason Stop Dose Admin Clopidogrel Bisulfate 75 mg 02/21/20 09:00 02/21/20 08:29 Clopidogrel Bisulfate 75 Mg Tab PO 75 mg DAILY WILMA Administration Sodium Chloride 1,000 mls @ 50 mls/hr 02/19/20 22:15 02/21/20 13:57 Normal Saline 0.9% IV 1,000 mls .Q20H WILMA Administration Ceftriaxone Sodium 1 gm/ 100 mls @ 200 mls/hr 02/20/20 09:00 02/21/20 08:34 Sodium Chloride IVPB 100 mls Q12HR WILMA Administration Nicardipine HCl 25 mg/ Sodium 250 mls @ 0 mls/hr 02/19/20 22:30 02/20/20 05:57 Chloride IVPB 250 mls INF WILMA Administration Protocol Titrate Vancomycin HCl 1 gm/ Device 200 mls @ 200 mls/hr 02/20/20 09:00 02/21/20 09:11 IVPB 200 mls Q12HR WILMA Administration Losartan Potassium 50 mg 02/21/20 09:00 02/21/20 08:29 Losartan 25 Mg Tab PO 50 mg DAILY WILMA Administration Metoprolol Tartrate 25 mg 02/21/20 09:00 02/21/20 08:29 Metoprolol Tartrate 25 Mg Tab PO 25 mg DAILY WILMA Administration Pantoprazole Sodium 40 mg 02/20/20 09:00 02/21/20 08:35 Pantoprazole 40 Mg Vial IVP 40 mg DAILY WILMA Administration Timolol Maleate 1 drop 02/20/20 21:00 02/21/20 08:30 Timolol 0.5% Ophth Soln 5 Ml Bottle EA EYE 1 drp BID WILMA Administration - Exam General Appearance: NAD, awake alert Eye: PERRL, anicteric sclera ENT: normocephalic atraumatic, no oropharyngeal lesions Neck: supple, symmetric, no JVD, no thyromegaly, no lymphadenopathy Heart: RRR, no gallops, no rubs, normal peripheral pulses Heart - other findings: S1, S2 Respiratory: CTAB, no wheezes, no rales, no ronchi, normal chest expansion, no tachypnea Gastrointestinal: soft, non-tender, non-distended, normal bowel sounds, no palpable masses Extremities: no cyanosis, no clubbing, no edema Skin: normal turgor, no lesions Neurological: cranial nerve grossly intact, no new deficit Musculoskeletal: normal tone, normal strength Psychiatric: normal affect, oriented to person, oriented to place Hosp A/P (1) Hypertensive encephalopathy Code(s): I67.4 - HYPERTENSIVE ENCEPHALOPATHY Status: Acute Plan: Resolving, continue supportive mgmt, BP control (2) Hypertensive urgency Code(s): I16.0 - HYPERTENSIVE URGENCY Status: Acute Plan: Resolving, resume home BP regimen (3) Cerebral aneurysm Status: Acute Plan: No acute surgical intervention, observation (4) Diabetes mellitus type 2 in obese Code(s): E11.69 - TYPE 2 DIABETES MELLITUS WITH OTHER SPECIFIED COMPLICATION; E66.9 - OBESITY, UNSPECIFIED Status: Chronic Plan: ISS, Metformin, ADA, serial accuchecks - Plan continue antibiotics, PT/OT, forensic social worker, out of bed/ambulate, DVT proph w /SCDs Continue supportive mgmt Cardene gtt d/c'd Resume home BP regimen Precedex d/c'd MRI brain negative for acute infarct PT for mobilization in 24h
[2020-02-21] MEDS ORDERED: Meclizine HCl 25 MG TAB PO PRN (16:31)
--- NOTE | 2020-02-21 16:49 | MRI ---
MRI BRAIN PERFORMED WITHOUT CONTRAST ENHANCEMENT: History: Stroke, aphasia, history of brain aneurysm. Comparison: CT examination 02-19-2020 FINDINGS: Generalized ventricular and sulcal prominence. T2 and FLAIR hyperintensity in the periventricular whi te matter is most consistent with some chronic ischemic white matter change. No evidence for hemorrhage. On the diffusion weighted sequence, I do not see any evidence for an acut e infarct. Appropriate flow voids are seen in the cavernous portion of the internal carotid arteries. Mastoid air cells and visualized sinuses are clear. IMPRESSION: No acute intracranial abnormalities. POS: OFF
[2020-02-21] MEDS ORDERED: Labetalol HCl 100 MG/20 ML VIAL SLOW IVP PRN (17:42)
[2020-02-21] MEDS: Metoprolol Tartrate 25 MG TAB PO SCH (18:36)
[2020-02-21] MEDS: metFORMIN 500 MG TAB PO SCH (18:36)
[2020-02-21] MEDS: Atorvastatin Calcium 40 MG TAB PO SCH (20:57)
[2020-02-21] MEDS: Aspirin 81 mg Enteric Coated Tablet PO SCH (20:58)
[2020-02-22] MEDS: Metoprolol Tartrate 25 MG TAB PO SCH ×2 (06:13→17:41)
[2020-02-22] MEDS: metFORMIN 500 MG TAB PO SCH ×2 (08:20→17:28)
[2020-02-22] MEDS: DULoxetine 60 MG CAP PO SCH (08:20)
[2020-02-22] MEDS: Clopidogrel Bisulfate 75 MG TAB PO SCH (08:20)
[2020-02-22] MEDS: Losartan 25 MG TAB PO SCH (08:21)
[2020-02-22] MEDS: cefTRIAXone\\ROCEPHIN 1 GM in Sodium Chloride 0.9% 100 ML IVPB SCH ×2 (08:21→20:41)
[2020-02-22] MEDS: Vancomycin 1 GM in Premix Bag 1 BAG IVPB SCH ×2 (08:23→21:24)
[2020-02-22] MEDS: Pantoprazole 40 MG VIAL IVP SCH (08:23)
[2020-02-22] MEDS: Timolol 0.5% Ophth Soln 5 ml Bottle EA EYE SCH ×2 (08:23→20:45)
[2020-02-22] MEDS: Leflunomide 10 mg Tablet PO SCH (08:24)
[2020-02-22] MEDS ORDERED: SAW PALMETTO 500 MG PO SCH (09:00)
--- NOTE | 2020-02-22 10:22 | PRG ---
DATE OF SERVICE: 02/22/2020 SUBJECTIVE: The patient is doing reasonably well compared to yesterday. He is alert, oriented, in no distress. OBJECTIVE: VITAL SIGNS: On exam, temperature 97, pulse 47, blood pressure 113/55, and O2 saturation 97%. HEENT: Unremarkable. NECK: No adenopathy or JVD. CHEST: Clear to auscultation. CARDIAC: S1 and S2. Regular. ABDOMEN: Soft. EXTREMITIES: No edema. LABORATORY DATA: No labs were obtained today. ASSESSMENT: 1. Hypertensive encephalopathy - better. 2. Possible sepsis. 3. Advanced age. 4. Diabetes mellitus. PLAN: Seems to be doing well with everything except for bradycardia. May need adjustment on his cardiac medications. There are no further Pulmonary/Critical Care recommendations. We will sign off. Job ID: [id number]
[2020-02-22] MEDS ORDERED: hydrALAZINE 25 MG TAB PO SCH (12:45)
--- NOTE | 2020-02-22 12:49 | PDOC.HOSPP ---
- Subjective Encounter Date: 02/22/20 Encounter Time: 12:30 Subjective: f/u for HTN encephalopathy now resolved. BP remains labile per nursing and bradycardia noted this am. Pt states he feels better overall. - Objective Vital Signs & Weight: Vital Signs (12 hours) Temp Pulse BP Pulse Ox 02/22/20 12:41 56 L 190/76 H 02/22/20 11:00 97.8 F 02/22/20 08:23 65 160/68 H 02/22/20 08:00 100 02/22/20 07:00 98.2 F 02/22/20 03:49 97.0 F L Weight Admit Weight 195 lb 15.855 oz Weight 195 lb 15.855 oz Most Recent Monitor Data Heart Rate from ECG 54 NIBP 153/74 NIBP BP-Mean 100 Respiration from ECG 20 SpO2 99 I&O: 02/21/20 02/22/20 02/23/20 06:59 06:59 06:59 Intake Total 1720.6 1906 Output Total 1525 1855 Balance 195.6 51 Result Diagrams: 02/21/20 03:16 02/21/20 03:16 Additional Labs: Microbiology 02/19/20 21:15 Venous blood - Right Hand Blood Culture - Preliminary Specimen has been received and culture in progress. No Growth to date. 02/19/20 21:15 Venous blood - Right Hand Blood Culture - Preliminary NO GROWTH AT 48 HOURS 02/19/20 21:15 Venous blood - Left Hand Blood Culture - Preliminary Specimen has been received and culture in progress. No Growth to date. 02/19/20 21:15 Venous blood - Left Hand Blood Culture - Preliminary NO GROWTH AT 48 HOURS Laboratory Tests 02/19/20 02/19/20 02/19/20 20:03 21:15 22:50 Lactic Acid 2.1 U Benzodiazepines Scrn Detected H SARS-CoV-2 (PCR) Not Detected 02/19/20 23:52 Lactic Acid 2.5 H U Benzodiazepines Scrn SARS-CoV-2 (PCR) EKG Reviewed by me: Yes (Tele - Sinus in 60's) Hospitalist ROS - Medication Medications: Active Medications Generic Name Dose Route Start Last Admin Trade Name Freq PRN Reason Stop Dose Admin Aspirin 81 mg 02/21/20 21:00 02/21/20 20:58 Aspirin 81 Mg Enteric Coated Tablet PO 81 mg HS WILMA Administration Atorvastatin Calcium 40 mg 10/04/20 21:00 02/21/20 20:57 Atorvastatin Calcium 40 Mg Tab PO 40 mg HS WILMA Administration Clopidogrel Bisulfate 75 mg 02/21/20 09:00 02/22/20 08:20 Clopidogrel Bisulfate 75 Mg Tab PO 75 mg DAILY WILMA Administration Duloxetine HCl 60 mg 02/22/20 09:00 02/22/20 08:20 Duloxetine 60 Mg Cap PO 60 mg DAILY WILMA Administration Hydralazine HCl 25 mg 02/22/20 12:45 02/22/20 12:41 Hydralazine 25 Mg Tab PO 02/22/20 14:45 25 mg 1245 WILMA Administration Ceftriaxone Sodium 1 gm/ 100 mls @ 200 mls/hr 02/20/20 09:00 02/22/20 08:21 Sodium Chloride IVPB 100 mls Q12HR WILMA Administration Nicardipine HCl 25 mg/ Sodium 250 mls @ 0 mls/hr 02/19/20 22:30 02/20/20 05:57 Chloride IVPB 250 mls INF WILMA Administration Protocol Titrate Vancomycin HCl 1 gm/ Device 200 mls @ 200 mls/hr 02/20/20 09:00 02/22/20 08:23 IVPB 200 mls Q12HR WILMA Administration Leflunomide 20 mg 02/22/20 09:00 02/22/20 08:24 Leflunomide 10 Mg Tablet PO 20 mg DAILY WILMA Administration Losartan Potassium 50 mg 02/21/20 09:00 02/22/20 08:21 Losartan 25 Mg Tab PO 50 mg DAILY WILMA Administration Metformin HCl 1,000 mg 02/21/20 17:00 02/22/20 08:20 Metformin 500 Mg Tab PO 1,000 mg BID-WM WILMA Administration Metoprolol Tartrate 25 mg 02/21/20 18:00 02/22/20 06:13 Metoprolol Tartrate 25 Mg Tab PO Not Given 0600,1800 WILMA Pantoprazole Sodium 40 mg 02/20/20 09:00 02/22/20 08:23 Pantoprazole 40 Mg Vial IVP 40 mg DAILY WILMA Administration Timolol Maleate 1 drop 02/20/20 21:00 02/22/20 08:23 Timolol 0.5% Ophth Soln 5 Ml Bottle EA EYE 1 drp BID WILMA Administration - Exam General Appearance: NAD, awake alert Eye: PERRL, anicteric sclera ENT: normocephalic atraumatic, no oropharyngeal lesions Neck: supple, symmetric, no JVD, no thyromegaly, no lymphadenopathy Heart: RRR, no gallops, no rubs, normal peripheral pulses Heart - other findings: S1, S2 Respiratory: CTAB, no wheezes, no rales, no tachypnea Gastrointestinal: soft, non-tender, non-distended, normal bowel sounds, no palpable masses Extremities: no cyanosis, no clubbing, no edema Skin: normal turgor, no lesions Neurological: cranial nerve grossly intact, no new deficit Musculoskeletal: normal tone, normal strength Psychiatric: normal affect, A&O x 3 Hosp A/P (1) Hypertensive encephalopathy Code(s): I67.4 - HYPERTENSIVE ENCEPHALOPATHY Status: Acute Plan: Resolving encephalopathy, BP remains labile, start Hydralazine 25mg BID, continue Metoprolol/Losartan, serial BP monitoring (2) Hypertensive urgency Code(s): I16.0 - HYPERTENSIVE URGENCY Status: Acute (3) Cerebral aneurysm Status: Acute (4) Diabetes mellitus type 2 in obese Code(s): E11.69 - TYPE 2 DIABETES MELLITUS WITH OTHER SPECIFIED COMPLICATION; E66.9 - OBESITY, UNSPECIFIED Status: Chronic - Plan plan discussed w/ family, director social service, out of bed/ambulate, DVT proph w/SCDs Continue supportive mgmt Cardene gtt d/c'd Resume home BP regimen Add Hydralazine 25mg BID Precedex d/c'd MRI brain negative for acute infarct Walking program Continue Metoprolol/Losartan Likely home in am
[2020-02-22] MEDS ORDERED: Metoprolol Tartrate 25 MG TAB PO SCH (20:15)
[2020-02-22 20:36] LABS: Vancomycin, Trough 17.4 ug/mL
[2020-02-22] MEDS: hydrALAZINE 25 MG TAB PO SCH (20:42)
[2020-02-22] MEDS: Atorvastatin Calcium 40 MG TAB PO SCH (20:43)
[2020-02-22] MEDS: Aspirin 81 mg Enteric Coated Tablet PO SCH (20:44)
[2020-02-23] MEDS: Metoprolol Tartrate 25 MG TAB PO SCH ×3 (05:44→18:32)
[2020-02-23] MEDS: Clopidogrel Bisulfate 75 MG TAB PO SCH (08:46)
[2020-02-23] MEDS: metFORMIN 500 MG TAB PO SCH ×2 (08:46→17:36)
[2020-02-23] MEDS: Losartan 25 MG TAB PO SCH (08:46)
[2020-02-23] MEDS: Leflunomide 10 mg Tablet PO SCH (08:47)
[2020-02-23] MEDS: hydrALAZINE 25 MG TAB PO SCH ×3 (08:47→20:48)
[2020-02-23] MEDS: cefTRIAXone\\ROCEPHIN 1 GM in Sodium Chloride 0.9% 100 ML IVPB SCH (08:49)
[2020-02-23] MEDS: Pantoprazole 40 MG VIAL IVP SCH (08:50)
[2020-02-23] MEDS: DULoxetine 60 MG CAP PO SCH (08:51)
[2020-02-23] MEDS: Vancomycin 1 GM in Premix Bag 1 BAG IVPB SCH (09:13)
[2020-02-23] MEDS: Timolol 0.5% Ophth Soln 5 ml Bottle EA EYE SCH ×2 (09:13→20:49)
[2020-02-23 13:39] VITALS: BMI 25.0
--- NOTE | 2020-02-23 17:51 | PDOC.HOSPP ---
- Subjective Encounter Date: 02/23/20 Encounter Time: 09:40 Subjective: f/u for HTN urgency/encephalopathy now resolved. BP labile but overall trend improved. Pt states he feels good overall, appetite fine. - Objective Vital Signs & Weight: Vital Signs (12 hours) Temp Pulse Resp BP Pulse Ox 02/23/20 11:20 97.4 F L 50 L 16 144/70 H 97 02/23/20 07:10 98 Weight Admit Weight 195 lb 15.855 oz Weight 195 lb Most Recent Monitor Data Heart Rate from ECG 61 NIBP 197/70 NIBP BP-Mean 112 Respiration from ECG 24 SpO2 99 I&O: 02/22/20 02/23/20 02/24/20 06:59 06:59 06:59 Intake Total 1906 1360 Output Total 1855 2125 Balance 51 -765 Result Diagrams: 02/21/20 03:16 02/21/20 03:16 Additional Labs: Microbiology 02/19/20 21:15 Venous blood - Right Hand Blood Culture - Preliminary Specimen has been received and culture in progress. No Growth to date. 02/19/20 21:15 Venous blood - Right Hand Blood Culture - Preliminary NO GROWTH AT 48 HOURS 02/19/20 21:15 Venous blood - Left Hand Blood Culture - Preliminary Specimen has been received and culture in progress. No Growth to date. 02/19/20 21:15 Venous blood - Left Hand Blood Culture - Preliminary NO GROWTH AT 48 HOURS Laboratory Tests 02/19/20 02/19/20 02/19/20 20:03 21:15 22:50 Lactic Acid 2.1 U Benzodiazepines Scrn Detected H SARS-CoV-2 (PCR) Not Detected 02/19/20 23:52 Lactic Acid 2.5 H U Benzodiazepines Scrn SARS-CoV-2 (PCR) EKG Reviewed by me: Yes (Tele - SR) Hospitalist ROS - Medication Medications: Active Medications Generic Name Dose Route Start Last Admin Trade Name Freq PRN Reason Stop Dose Admin Aspirin 81 mg 02/21/20 21:00 02/22/20 20:44 Aspirin 81 Mg Enteric Coated Tablet PO 81 mg HS WILMA Administration Atorvastatin Calcium 40 mg 02/21/20 21:00 02/22/20 20:43 Atorvastatin Calcium 40 Mg Tab PO 40 mg HS WILMA Administration Clopidogrel Bisulfate 75 mg 02/21/20 09:00 02/23/20 08:46 Clopidogrel Bisulfate 75 Mg Tab PO 75 mg DAILY WILMA Administration Duloxetine HCl 60 mg 02/22/20 09:00 02/23/20 08:51 Duloxetine 60 Mg Cap PO 60 mg DAILY WILMA Administration Hydralazine HCl 25 mg 02/23/20 15:00 02/23/20 15:42 Hydralazine 25 Mg Tab PO 25 mg TID WILMA Administration Leflunomide 20 mg 02/22/20 09:00 02/23/20 08:47 Leflunomide 10 Mg Tablet PO 20 mg DAILY WILMA Administration Losartan Potassium 50 mg 02/21/20 09:00 02/23/20 08:46 Losartan 25 Mg Tab PO 50 mg DAILY WILMA Administration Metformin HCl 1,000 mg 02/21/20 17:00 02/23/20 17:36 Metformin 500 Mg Tab PO 1,000 mg BID-WM WILMA Administration Metoprolol Tartrate 25 mg 02/21/20 18:00 02/23/20 17:36 Metoprolol Tartrate 25 Mg Tab PO Not Given 0600,1800 WILMA Pantoprazole Sodium 40 mg 02/20/20 09:00 02/23/20 08:50 Pantoprazole 40 Mg Vial IVP 40 mg DAILY WILMA Administration Sodium Chloride 10 ml 02/19/20 22:10 02/23/20 08:48 Flush - Normal Saline 10 Ml Syringe IVF 10 ml PRN PRN Administration Saline Flush Sodium Chloride 10 ml 02/20/20 08:45 02/23/20 08:48 Sodium Chloride 0.9% (Pf) 10 Ml Vial FS 10 ml PRN PRN Administration RECONSTITUTION Timolol Maleate 1 drop 02/20/20 21:00 02/23/20 09:13 Timolol 0.5% Ophth Soln 5 Ml Bottle EA EYE 1 drp BID WILMA Administration - Exam General Appearance: NAD, awake alert Eye: PERRL, anicteric sclera ENT: normocephalic atraumatic, no oropharyngeal lesions Neck: supple, symmetric, no JVD, no thyromegaly, no lymphadenopathy Heart: RRR, no gallops, no rubs, normal peripheral pulses Heart - other findings: S1, S2 Respiratory: CTAB, no wheezes, no rales, no ronchi, normal chest expansion, no tachypnea Gastrointestinal: soft, non-tender, non-distended, normal bowel sounds, no pal pable masses Extremities: no cyanosis, no clubbing, no edema Skin: normal turgor, no lesions Neurological: cranial nerve grossly intact, no new deficit Musculoskeletal: normal tone, generalized weakness Psychiatric: normal affect, A&O x 3 Hosp A/P (1) Hypertensive encephalopathy Code(s): I67.4 - HYPERTENSIVE ENCEPHALOPATHY Status: Acute Plan: Resolved, continue BP optimization (2) Hypertensive urgency Code(s): I16.0 - HYPERTENSIVE URGENCY Status: Acute Plan: Resolved, titrating BP regimen for optimal response (3) Cerebral aneurysm Status: Acute (4) Diabetes mellitus type 2 in obese Code(s): E11.69 - TYPE 2 DIABETES MELLITUS WITH OTHER SPECIFIED COMPLICATION; E66.9 - OBESITY, UNSPECIFIED Status: Chronic - Plan PT/OT, social service assistant, out of bed/ambulate, DVT proph w/SCDs Continue supportive mgmt Cardene gtt d/c'd Resume home BP regimen Change Hydralazine 25mg TID Precedex d/c'd MRI brain negative for acute infarct Walking program Continue Metoprolol/Losartan D/c Rocephin/Vancomycin, no evidence of infection Likely home in am
[2020-02-23] MEDS: Aspirin 81 mg Enteric Coated Tablet PO SCH (20:49)
[2020-02-23] MEDS: Atorvastatin Calcium 40 MG TAB PO SCH (20:49)
[2020-02-24] MEDS: Metoprolol Tartrate 25 MG TAB PO SCH (07:22)
[2020-02-24] MEDS: DULoxetine 60 MG CAP PO SCH (08:55)
[2020-02-24] MEDS: metFORMIN 500 MG TAB PO SCH (08:55)
[2020-02-24] MEDS: Losartan 25 MG TAB PO SCH (08:55)
[2020-02-24] MEDS: hydrALAZINE 25 MG TAB PO SCH (08:55)
[2020-02-24] MEDS: Leflunomide 10 mg Tablet PO SCH (08:56)
[2020-02-24] MEDS: Pantoprazole 40 MG VIAL IVP SCH (08:56)
[2020-02-24] MEDS: Clopidogrel Bisulfate 75 MG TAB PO SCH (08:56)
[2020-02-24] MEDS: Timolol 0.5% Ophth Soln 5 ml Bottle EA EYE SCH (09:26)
[2020-02-24] MEDS ORDERED: hydrALAZINE 25 MG TAB PO SCH ×3 (09:30→21:00)
[2020-02-24 13:02] VITALS: BP 132/69; TEMP 97.4
--- NOTE | 2020-02-25 01:02 | DIS ---
DATE OF ADMISSION: 02/19/2020 DATE OF DISCHARGE: 02/24/2020 DISCHARGE DIAGNOSES: 1. Hypertensive encephalopathy, resolved. 2. Hypertensive urgency, resolved. 3. Cerebral aneurysm, chronic, stable. No surgical intervention. 4. Diabetes mellitus type 2, chronic. CONSULTATIONS: 1. Dr. Correa with Neurosurgical Service. 2. Dr. Santillan with Pulmonology Critical Care Service. 3. Dr. Haynes with Neurology Service. PERTINENT LABORATORY AND X-RAY FINDINGS: Lactic acid level ranged between 2.1 to 2.5. Troponin I negative x1. Total cholesterol 127, triglycerides 122, HDL 40, LDL 63. CBC showed a hemoglobin ranged between 11.1 and 11.8. Urine drug screen dated 02/19/2020 positive for benzodiazepines. COVID-19 PCR not detected, 02/19/2020. Blood cultures x2 dated 02/19/2020 showed no growth at [address] of the brain without contrast dated 02/19/2020 showed no acute infarct. 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 No proximal stenosis or occlusion noted. Portable chest x-ray dated 02/19/2020 showed no acute infiltrate. 2D transthoracic echocardiogram dated 02/20/2020, showed ejection fraction of 55% to 60%. Diastolic dysfunction noted. Mild mitral and tricuspid regurgitation noted. MRI of the brain dated 02/21/2020, showed no acute intracranial process. HOSPITAL COURSE: The patient was initially admitted after presenting with altered mental status in connection with hypertensive urgency. The patient was placed on a Cardene infusion and admitted to the Critical Care Unit. Blood pressure was overall controlled on the Cardene infusion at which point, the patient was transitioned to oral blood pressure medications. The patient was evaluated by the Neurology and Neurosurgical Service due to findings on the CT angiogram of the head and neck showing saccular aneurysm. No specific recommendations for acute surgical intervention by Neurosurgical evaluation. The patient was noted with a mild fever at the time of admission. Initially placed on IV Rocephin and vancomycin, however, no focal infectious process was identified. The patient was slow to clinically improve with mental status resolving as hypertensive urgency resolved. The patient was transitioned from the Critical Care Unit to the Telemetry Unit with titration of his blood pressure regimen. The patient may need additional titration of his blood pressure regimen on an ongoing basis after discharge. I have examined the patient at the time of discharge and discussed followup instructions. The patient verbalizes understanding and in agreement, ready for discharge on 02/24/2020. DISCHARGE MEDICATIONS: 1. Meclizine 25 mg p.o. daily p.r.n. 2. Arava 20 mg p.o. daily. 3. Timolol 0.5% one drop to each eye b.i.d. 4. Chlorpheniramine 4 mg p.o. daily. 5. Plavix 75 mg p.o. daily. 6. Aspirin 81 mg p.o. daily. 7. Cymbalta 60 mg p.o. daily. 8. Lipitor 40 mg p.o. daily. 9. Metformin extended release 1000 mg p.o. b.i.d. 10. Saw Hammond 500 mg p.o. daily. 11. Telmisartan 40 mg p.o. daily. 12. Hydralazine 50 mg p.o. b.i.d. 13. Metoprolol tartrate 25 mg p.o. b.i.d. FOLLOWUP: The patient to establish with new primary care provider in the [facility] system. CONDITION ON DISCHARGE: Stable. ACTIVITY: Ad-marii. DIET: Heart healthy and ADA. CODE STATUS: Full. DISPOSITION: To home, 02/24/2020. TIME SPENT: Total time preparing and coordinating discharge, 38 minutes. Job ID: [id number]
== END 2020-02-24 14:55 | disposition home or self-care (01) | DRG 78 ==
LOC: ERS 18:44 → CCU 21:51 → IMCU/EMU 02-21 11:40 → 2NO 02-22 18:54
PROVIDERS: ADMIT Internal Medicine; ATTEND Internal Medicine
DX: I67.4 Hypertensive encephalopathy (principal); I16.1 Hypertensive emergency; R47.01 Aphasia; G81.91 Hemiplegia, unspecified affecting right dominant side; I67.1 Cerebral aneurysm, nonruptured; Z20.828 Contact with and (suspected) exposure to other viral communicable diseases; E11.9 Type 2 diabetes mellitus without complications; E66.9 Obesity, unspecified; R00.1 Bradycardia, unspecified; I10 Essential (primary) hypertension; I25.10 Atherosclerotic heart disease of native coronary artery without angina pectoris; Z86.73 Personal history of transient ischemic attack (TIA), and cerebral infarction without residual deficits; Z90.49 Acquired absence of other specified parts of digestive tract; Z79.899 Other long term (current) drug therapy; Z79.82 Long term (current) use of aspirin; Z88.1 Allergy status to other antibiotic agents; Z87.891 Personal history of nicotine dependence; Z68.25 Body mass index [BMI] 25.0-25.9, adult; Z88.8 Allergy status to other drugs, medicaments and biological substances
CPT/HCPCS: 36415; 70450; 70496; 70498; 70551; 71045; 80048; 80053; 80061; 80202; 80306; 81003; 81015; 82550; 83605; 84484; 85025; 85610; 85730; 87040; 87635; 93005; 93306; 94760; 95712; 95816; 95819; C9113; J0696; J2060; J3370; J3490; J7050; Q9967; U0003